=== PATIENT | female | born 1960 | race American Indian/Alaskan Native ===

== ENCOUNTER 2017-05-04 06:12 | Emergency (ER) | payer OTHER ==
[2017-05-04 07:11] VITALS: BP 125/77
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
[2017-05-04] MEDS ORDERED: FLEXERIL PO ONE (08:48)
[2017-05-04] MEDS ORDERED: TORADOL IM ONE (08:48)
== END 2017-05-04 09:42 | disposition home or self-care (01) ==
LOC: ED 06:12
DX: S16.1XXA Strain of muscle, fascia and tendon at neck level, initial encounter (principal); V89.2XXA Person injured in unspecified motor-vehicle accident, traffic, initial encounter; Y93.89 Activity, other specified; Y92.89 Other specified places as the place of occurrence of the external cause; Y99.8 Other external cause status
CPT/HCPCS: 96372; 99282; J1885

== ENCOUNTER 2020-02-12 09:59 | Emergency (ER) | payer OTHER ==
[2020-02-12 10:07] VITALS: BP 148/83
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
== END 2020-02-12 13:53 | disposition home or self-care (01) ==
LOC: ED 09:59
DX: S16.1XXA Strain of muscle, fascia and tendon at neck level, initial encounter (principal); Z79.1 Long term (current) use of non-steroidal anti-inflammatories (NSAID); Z79.899 Other long term (current) drug therapy; V49.49XA Driver injured in collision with other motor vehicles in traffic accident, initial encounter; Y93.89 Activity, other specified; Y92.410 Unspecified street and highway as the place of occurrence of the external cause; Y99.8 Other external cause status
CPT/HCPCS: 99282

== ENCOUNTER 2021-07-25 17:38 | Emergency (ER) | payer OTHER ==
[2021-07-25 17:54] VITALS: BP 148/77
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
== END 2021-07-25 20:28 | disposition home or self-care (01) ==
LOC: ED 17:38
DX: M54.2 Cervicalgia (principal); M54.5 Low back pain; Z98.890 Other specified postprocedural states; V87.7XXA Person injured in collision between other specified motor vehicles (traffic), initial encounter; Y93.89 Activity, other specified; Y92.89 Other specified places as the place of occurrence of the external cause; Y99.8 Other external cause status
CPT/HCPCS: 99282